=== PATIENT | female | born 1990 | race Hispanic/Latino ===

== ENCOUNTER 2023-03-20 15:20 | Emergency (ER) | payer BC ==
[~2023-03-20] VITALS: Ht 157.5 cm; Wt 95.3 kg
[2023-03-20 15:45] VITALS: BP 125/78
[2023-03-20 16:00] VITALS: BP 122/81
[2023-03-20 16:15] VITALS: BP 120/85
[2023-03-20 16:30] VITALS: BP 121/80
[2023-03-20] MEDS ORDERED: MEDDOSEPAK PO (16:44)
[2023-03-20] MEDS ORDERED: NAPROXEN500 MG PO (16:44)
[2023-03-20 16:45] VITALS: BP 121/81
[2023-03-20 16:53] VITALS: BP 121/81
== END 2023-03-20 17:01 | disposition home or self-care (01) | DRG 556 ==
LOC: ED 15:20
DX: M25.561 Pain in right knee (principal); E11.9 Type 2 diabetes mellitus without complications

== ENCOUNTER 2024-06-18 09:34 | Emergency (ER) | payer OTHER ==
[~2024-06-18] VITALS: Ht 157.5 cm; Wt 74.8 kg
[~2024-06-18 09:34] MED LIST: MEDDOSEPAK PO; NAPROXEN500 MG PO
[2024-06-18 09:39] VITALS: BP 124/78
[2024-06-18] MEDS ORDERED: TETRACAINE HCL 0.5 %/4 ML SOL OD ONE (09:40)
[2024-06-18] MEDS ORDERED: FLUORESCEIN SODIUM 1 MG EA OD ONE (09:40)
[2024-06-18 09:45] VITALS: BP 121/73
[2024-06-18 11:21] VITALS: BP 121/73
== END 2024-06-18 11:27 | disposition home or self-care (01) | DRG 125 ==
LOC: ED 09:34
DX: H53.8 Other visual disturbances (principal); E11.9 Type 2 diabetes mellitus without complications